=== PATIENT | female | born 1985 | race Caucasian/White ===

== ENCOUNTER → 2020-01-29 | Outpatient (CLI) | payer BC, OTHER ==
[~2020-01-29] MED LIST: NONE PER PT
[2020-01-29 12:06] LABS: MICROSCOPIC INDICATED
[2020-01-29 12:06] LABS: BASOPHILS # (AUTO) 0.07 x10^3/uL (0-0.1); BASOPHILS % (AUTO) 1 % (0-1); EOSINOPHILS # (AUTO) 0.15 x10^3/uL (0-0.4); EOSINOPHILS % (AUTO) 2 % (1-7); LYMPHOCYTES # (AUTO) 2.24 x10^3/uL (1-3.4); LYMPHOCYTES % (AUTO) 27 % (22-44); MD NO; MEAN CORPUSCULAR HEMOGLOBIN 24.6 pg (27.0-34.8); MEAN CORPUSCULAR HGB CONC 31.9 g/dL (32.4-35.8); MEAN CORPUSCULAR VOLUME 76.9 fL (80-100); MEAN PLATELET VOLUME 8.4 fL (7.4-10.4); MONOCYTES # (AUTO) 0.78 x10^3/uL (0.2-0.8); MONOCYTES % (AUTO) 9 % (2-9); NEUTROPHILS # (AUTO) 5.19 x10^3/uL (1.8-6.8); NEUTROPHILS % (AUTO) 62 % (42-75); PLATELET COUNT 449 x10^3/uL (130-400); RED BLOOD COUNT 5.22 x10^6/uL (3.82-5.3); RED CELL DISTRIBUTION WIDTH 17.7 % (9.6-15.2)
[2020-01-29 12:25] LABS: ALBUMIN 3.8 g/dL (3.4-5.0); ANION GAP 6 mmol/L (5-15); CALCIUM 9.1 mg/dL (8.5-10.1); CHLORIDE 109 mmol/L (98-107)
[2020-01-29 12:30] LABS: ALANINE AMINOTRANSFERASE 30 U/L (12-78); ALKALINE PHOSPHATASE 66 U/L (45-117); BILIRUBIN,TOTAL 0.2 mg/dL (0.2-1.0); CREATININE 0.85 mg/dL (0.55-1.02)
== END | disposition home or self-care (01) ==
LOC: STAR 11:01
PROVIDERS: ATTEND Obstetrics & Gynecology
DX: Z01.818 Encounter for other preprocedural examination (principal)
CPT/HCPCS: 36415; 80053; 81001; 84702; 85025; 87086

== ENCOUNTER 2020-02-06 05:39 | Day surgery (SDC) | payer BC, OTHER ==
[~2020-02-06] VITALS: Ht 165.1 cm; Wt 76.3 kg
[2020-02-06] MEDS ORDERED: LACTATED RINGERS 1,000 ML IV SCH (06:03)
[2020-02-06 06:07] VITALS: BP 148/88
[2020-02-06] MEDS ORDERED: METR500T PO (06:10)
[2020-02-06 06:24] LABS: HCG UR SG 1.024 (1.003-1.030)
[2020-02-06] MEDS ORDERED: CHLORHEXIDINE 15 ML UDC MM ONE (06:30)
[2020-02-06] MEDS ORDERED: SILVER NITRATE STICK TP ONE (06:49)
[2020-02-06] MEDS ORDERED: BUPIVACAINE/PF 0.25% ONE (06:49)
[2020-02-06] MEDS ORDERED: BUPIVACAINE/PF-EPI 0.25% 1:200K ONE (06:49)
[2020-02-06] MEDS ORDERED: MIDAZOLAM 1 MG/ML, 2ML ONE (07:04)
[2020-02-06] MEDS ORDERED: DEXAMETHASONE 4 MG/ML, 1ML ONE (07:04)
[2020-02-06] MEDS ORDERED: ROCURONIUM 10MG/ML,5ML ONE (07:04)
[2020-02-06] MEDS ORDERED: PROPOFOL 10 MG/ML, 20ML ONE (07:04)
[2020-02-06] MEDS ORDERED: LIDOCAINE-MPF 2% ,5ML ONE (07:04)
[2020-02-06] MEDS ORDERED: GLYCOPYRROLATE 0.2MG/1ML, 5ML ONE (07:04)
[2020-02-06] MEDS ORDERED: FENTANYL PF 250 MCG/5ML ONE (07:05)
[2020-02-06] MEDS ORDERED: LIDOCAINE 1%, 20ML ONE (07:10)
[2020-02-06] MEDS ORDERED: MAGNESIUM SULFATE 1 GM/2 ML ONE (07:10)
[2020-02-06] MEDS ORDERED: SCOPOLAMINE 1MG PATCH TD ONE (07:14)
[2020-02-06] MEDS ORDERED: METOCLOPRAMIDE 5 MG/ML, 2ML IVPush PRN (07:30)
[2020-02-06] MEDS ORDERED: DIAZEPAM 5 MG/ML, 2ML IVPush PRN (07:30)
[2020-02-06] MEDS ORDERED: METHOCARBAMOL 1,000 MG in DEXTROSE 5% 100 ML IV PRN (07:30)
[2020-02-06] MEDS ORDERED: LORazepam 2 MG/ML, 1ML IVPush PRN (07:30)
[2020-02-06] MEDS ORDERED: DIPHENHYDRAMINE 50 MG/ML, 1ML IVPush PRN (07:30)
[2020-02-06] MEDS ORDERED: OXYcodone 5 MG/5 ML ORAL.SOL UDC PO PRN (07:30)
[2020-02-06] MEDS ORDERED: MIDAZOLAM 1 MG/ML, 2ML IV PRN (07:30)
[2020-02-06] MEDS ORDERED: EPHEDRINE 50 MG/ML, 1ML IM PRN (07:30)
[2020-02-06] MEDS ORDERED: EPHEDRINE 50 MG/ML, 1ML IVPush PRN (07:30)
[2020-02-06] MEDS ORDERED: HYDROcodone/APAP 7.5-325MG/15ML UDC PO PRN (07:30)
[2020-02-06] MEDS ORDERED: LABETALOL 5MG/ML, 20ML IV PRN (07:30)
[2020-02-06] MEDS ORDERED: SCOPOLAMINE 1MG PATCH TD SCH (07:30)
[2020-02-06] MEDS ORDERED: ACETAMINOPHEN 325 MG TABLET PO PRN (07:30)
[2020-02-06] MEDS ORDERED: KETOROLAC 30 MG/1 ML IVPush PRN (07:30)
[2020-02-06] MEDS ORDERED: ALBUTEROL/IPRATROPIUM 2.5MG/0.5MG, 3 ML NPPB PRN (07:30)
[2020-02-06] MEDS ORDERED: HYDROmorphone 1 MG/ML, 1ML INJ IVPush PRN (07:30)
[2020-02-06] MEDS ORDERED: hydrALAzine 20 MG/ML, 1ML IV PRN (07:30)
[2020-02-06] MEDS ORDERED: ONDANSETRON 2MG/ML, 2ML IVPush PRN (07:30)
[2020-02-06] MEDS ORDERED: HALOPERIDOL 5 MG/ML IV PRN (07:30)
[2020-02-06] MEDS ORDERED: CEFAZOLIN 1,000 MG ONE (07:34)
[2020-02-06] MEDS ORDERED: ONDANSETRON 2MG/ML, 2ML ONE (08:03)
[2020-02-06] MEDS ORDERED: KETOROLAC 30 MG/1 ML ONE (08:39)
[2020-02-06] MEDS ORDERED: FENTANYL PF 100 MCG/2ML ONE (08:52)
[2020-02-06] MEDS ORDERED: ACETAMINOPHEN 650 MG/20.3 ML UDC ONE (08:52)
[2020-02-06] MEDS ORDERED: OXYcodone 5 MG/5 ML ORAL.SOL UDC ONE (08:53)
[2020-02-06] MEDS: FENTANYL PF 100 MCG/2ML IV PRN ×2 (08:58→09:15)
== END 2020-02-06 10:50 | disposition home or self-care (01) ==
LOC: OUT 05:39
PROVIDERS: ATTEND Obstetrics & Gynecology
DX: Z30.2 Encounter for sterilization (principal); Z11.59 Encounter for screening for other viral diseases; Z79.899 Other long term (current) drug therapy; Z88.5 Allergy status to narcotic agent; Z98.890 Other specified postprocedural states; Z80.3 Family history of malignant neoplasm of breast; Z80.41 Family history of malignant neoplasm of ovary; Z80.49 Family history of malignant neoplasm of other genital organs
CPT/HCPCS: 36415; 58670; 81025; 86850; 86900; 87635; 88302; J0690; J1100; J1885; J2250; J2405; J2704; J3010; J3475; J7120; J3490